=== PATIENT | female | born 1940 | race Caucasian/White ===

== ENCOUNTER 2017-03-09 20:53 | Emergency (ER) | payer MEDICARE ==
[2017-03-09 21:53] LABS: BASOPHILS 0.6 % (0-2); EOSINOPHILS 1.9 % (0-7); HEMATOCRIT 43.4 % (36.0-48.0); HEMOGLOBIN 14.6 g/dL (12-16); IMMATURE GRANULOCYTES 0.1 % (0-5); LYMPHOCYTES 45.2 % (15-50); MCH 29.9 pg (26.0-34.0); MCHC 33.6 g/dL (31.0-37.0); MCV 88.9 fL (80.0-100.0); MONOCYTES 9.9 % (2-11); NEUTROPHILS 42.3 % (40-80); PLATELET COUNT 227 10x3/uL (130-400); RBC 4.88 10x6/uL (4.00-5.40); RDW 12.9 % (11.5-14.5); WBC 8.1 10x3/uL (4.8-10.8)
[2017-03-09 21:57] LABS: KETONE - SERUM NEGATIVE (NEGATIVE)
[2017-03-09 22:06] LABS: APPEARANCE CLEAR (CLEAR); BILIRUBIN NEGATIVE (NEGATIVE); COLOR COLORLESS (YELLOW); GLUCOSE NEGATIVE (NEGATIVE); KETONE SMALL mg/dL (NEGATIVE); NITRITE NEGATIVE (NEGATIVE); PH 7.5 (5.0-6.0); PROTEIN TRACE mg/dL (NEGATIVE); UROBILINOGEN NORMAL (NORMAL)
[2017-03-09 22:06] LABS: ALBUMIN 4.2 g/dL (3.4-5.0); ALKALINE PHOSPHATASE 92 U/L (46-116); ALT (SGPT) 34 U/L (10-68); BILIRUBIN - TOTAL 0.38 mg/dL (0.2-1.3); CALC OSMOLALITY 287 mosm/kg (275-300); CALCIUM 9.5 mg/dL (8.5-10.1); CARBON DIOXIDE 30.2 mmol/L (21.0-32.0); CHLORIDE - SERUM 104 mmol/L (98-107); CREATININE - SERUM 0.6 mg/dL (0.6-1.3); GLUCOSE 138 mg/dL (74-106); HEMOGLOBIN A1C 6.1 % (4.8-6.0); POTASSIUM - SERUM 3.3 mmol/L (3.5-5.1); PROTEIN - SERUM 8.1 g/dL (6.4-8.2); SODIUM 142 mmol/L (136-145); UREA NITROGEN 20 mg/dL (7-18); eGFR NON AFRICAN AMERICAN > 90 mL/min (90-120)
[2017-03-09 22:10] LABS: BACTERIA FEW /hpf (NONE SEEN); EPITHELIAL CELLS 0-5 /hpf (0-5); RED CELLS - URINE 0-5 /hpf (0-5); WHITE CELLS - URINE 0-5 /hpf (0-5)
[2017-03-09 22:11] LABS: UDS - AMPHET NEGATIVE QUAL (NEGATIVE); UDS - BARB NEGATIVE QUAL (NEGATIVE); UDS - BENZO NEGATIVE QUAL (NEGATIVE); UDS - COCAINE NEGATIVE QUAL (NEGATIVE); UDS - OPIATE NEGATIVE QUAL (NEGATIVE); UDS - PCP NEGATIVE QUAL (NEGATIVE); UDS - THC NEGATIVE QUAL (NEGATIVE)
[2017-03-09 22:19] LABS: AMYLASE - SERUM 80 U/L (25-115); CREATINE KINASE 98 UL (21-215); LIPASE 229 U/L (73-393); PRO BNP 114 pg/mL (0-125); THYROID STIMULATING HORMONE 1.79 uIU/mL (0.36-3.74)
[2017-03-09 22:21] LABS: C-REACTIVE PROTEIN < 0.2 mg/dL (0.0-0.9); TROPONIN-I < 0.017 ng/mL (0.000-0.060)
== END 2017-03-09 23:00 | disposition home or self-care (01) ==
LOC: D.ER 20:53
PROVIDERS: Family Medicine
DX: I10 Essential (primary) hypertension (principal)